=== PATIENT | male | born 1970 | race Caucasian/White ===

== ENCOUNTER → 2021-03-09 11:49 | Outpatient (CLI) | payer OTHER, SELFPAY ==
--- NOTE | ~2021-03-09 | MR_ITS ---
EXAMINATION: MR knee LT wo con DATE: 03/09/2021 13:09 INDICATION: Left knee pain TECHNIQUE: Magnetic resonance imaging (MRI) of the left knee was performed without intravenous contra st. Sequences included coronal PD-weighted FSE, coronal PD-weighted FS FSE, sagittal T2-weighted FSE , sagittal PD-weighted FS FSE and axial PD weighted fat saturated FSE. COMPARISON: None. FINDINGS: Medial compartment: Complex tear of the body and posterior horn of the medial meniscus. Region of full/near full-thicknes s chondral ulceration with underlying cortical irregularity and subarticular edema at the central and extending into the posterior weightbearing medial femoral condyle. Similar smaller region of deep ch ondral ulceration, cortical irregularity and mild subarticular edema along the medial rim of the medi al tibial plateau. Preserved cartilage thickness with deep chondral fissuring and few subtle foci of subarticular edema at the anterior weightbearing medial femoral condyle. Lateral compartment: Lateral meniscus is normal. Articular cartilage is normal. Patellofemoral compartment: Deep chondral fissure without degenerative subchondral changes at the junction of the medial and odd patellar facets. Nondisplaced deep chondral flap tear which involves greater than 50% the cartilage t hickness at the inferior aspect of the medial trochlea without degenerative subchondral changes. Smal l sagittal oriented region of cartilage signal change at the caudal aspect of the trochlear groove eaton ggesting additional deep fissuring. Ligaments and tendons: Anterior and posterior cruciate ligaments are normal. The medial collateral ligament and fibular thom ateral ligament complex are normal. The extensor mechanism is normal. The visualized medial and later al hamstring tendons as well as the iliotibial band are normal. Fluid: Small left knee joint effusion. No loose osteochondral bodies identified. Osseous/other: Scattered degenerative subchondral changes previously detailed. Small low signal intensity bone islan d at the anterior aspect of the medial tibial plateau. No fracture or pathologic marrow replacing pro cess. IMPRESSION: 1. Complex medial meniscal tear. 2. 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 3. Small right knee joint effusion. Reviewed, dictated and finalized at location B. IMPRESSION: 1. Complex medial meniscal tear. 2. Mild osteoarthritis with moderately extensive high-grade chondromalacia in t he medial compartment and with small regions of moderate to high-grade chondrom alacia in the patellofemoral compartment. 3. Small right knee joint effusion.
--- NOTE | ~2021-03-09 | MR_ITS ---
EXAMINATION: MR shoulder RT wo con DATE: 03/09/2021 12:58 INDICATION: Right shoulder pain. TECHNIQUE: Magnetic resonance imaging (MRI) of the right shoulder was performed without intravenous c ontrast. Sequences included axial PD-weighted FS FSE, coronal oblique PD-weighted FS FSE, coronal obl ique T2-weighted FS FSE, sagittal PD-weighted FS FSE, and sagittal T1-weighted SE. COMPARISON: None. FINDINGS: Coracoacromial arch: The acromion undersurface is flat in morphology (type I). The coracoacromial ligament is normal. Mode rate acromioclavicular osteoarthritis. Rotator cuff: The supraspinatus, infraspinatus and teres minor tendons are normal. The subscapularis tendon is norm al. Normal rotator cuff muscle bulk and signal. Biceps tendon, glenoid labrum and glenohumeral cartilage: Long head of the biceps tendon is normal. Small linear tear at the chondral labral junction of the 10 :00 position of the glenoid labrum. Glenohumeral cartilage is normal. Fluid: Physiologic amount of fluid in the glenohumeral joint and biceps tendon sheath. No loose osteochondra l bodies. Mild increased fluid signal at the subacromial/subdeltoid bursa consistent with minimal bur sitis. Bones: Bone alignment is normal. No fracture or pathologic marrow replacing process. Small low signal intens ity bone island at the posterior humeral head. IMPRESSION: 1. Small tear at the chondral labral junction of the o'clock position of the glenoid labrum. 2. Moderate acromioclavicular osteoarthritis with minimal underlying subacromial/subdeltoid bursitis. Reviewed, dictated and finalized at location B. IMPRESSION: 1. Small tear at the chondral labral junction of the o'clock position of the gl enoid labrum. 2. Moderate acromioclavicular osteoarthritis with minimal underlying subacromia l/subdeltoid bursitis.
== END ==
DX: M25.562 Pain in left knee (principal); G89.29 Other chronic pain; M19.011 Primary osteoarthritis, right shoulder; M17.12 Unilateral primary osteoarthritis, left knee; M25.462 Effusion, left knee; S83.232A Complex tear of medial meniscus, current injury, left knee, initial encounter; X58.XXXA Exposure to other specified factors, initial encounter
CPT/HCPCS: 73221; 73721